=== PATIENT | male | born 1950 | race Caucasian/White ===

== ENCOUNTER 2017-11-28 17:40 | Emergency (ER) | payer MEDICARE ==
[2017-11-28] MEDS ORDERED: Aspirin Low Dose CHEW TAB* 81 MG PO ONE (18:15)
[2017-11-28] MEDS ORDERED: Aspirin Low Dose CHEW TAB* 81 MG ONE (18:17)
[2017-11-28 18:39] LABS: ABS Basophils 0 10^3/ul (0-0.2); ABS Eosinophils 0.1 10^3/ul (0-0.6); ABS Lymphocytes 1.7 10^3/ul (1.0-4.8); ABS Monocytes 0.6 10^3/ul (0-0.8); ABS Neutrophils 2.6 10^3/ul (1.5-7.7); ABS Nucleated RBC 0 10^3/ul; Eosinophil % 1.1 % (0-6); Hematocrit 43 % (42-52); Hemoglobin 14.6 g/dl (14.0-18.0); Lymphocyte % 34.1 % (25-47); Mean Corpuscular HGB Conc 34 g/dl (31-36); Mean Corpuscular Hemoglobin 29 pg (27-31); Mean Corpuscular Volume 85 fL (80-94); Mean Platelet Volume 8 um3 (7.4-10.4); Nucleated Red Blood Cells % 0.1; Platelet Count 171 10^3/ul (150-450); Red Blood Count 5.09 10^6/ul (4.0-5.4); Red Cell Distribution Width 17 % (10.5-15); White Blood Count 4.9 10^3/ul (3.5-10.8)
[2017-11-28 19:01] LABS: EGFR Non-African American 70.5 (>60)
--- NOTE | 2017-11-28 19:09 | RAD ---
Indication: LEFT upper side chest pain starting yesterday with worsening today. Coronary artery disease with prior stenting. Prior tobacco use. Comparison: March 10, 2015 Technique: Upright AP 1850 hours Report: Clear lungs and pleural spaces. Negative for pneumothorax. The heart, pulmonary vasculature, and mediastinal contours are unremarkable. Unremarkable osseous structures and soft tissue contours. IMPRESSION: No evidence for acute intrathoracic disease.
[2017-11-28] MEDS ORDERED: Omeprazole CAP* 20 MG PO ONE (22:32)
--- NOTE | 2017-11-28 23:09 | ED ---
Alicja Hernandez Jason, scribed for Vi Rodriguez MD on 11/28/17 at 2211 . HPI Chest Pain - HPI Summary HPI Summary: This patient is a 66 year old M presenting to [facility] after driving himself to the ED with a chief complaint of stabbing chest pain since 1500. Pt also had some chest pain yesterday while chopping wood that resolved spontaneously. The patient states he had 2 stents placed approximately 2 years ago (2015), and he is since off his Brilinta since Sep 2016. He did not have an AR. Pt also has hyperlipidemia and takes atorvastatin. He has a strong family history of heart problems with his brother having an AR and CABG, and his father of valvular disease. Pt states he called Dr. Bhandari this afternoon to arrange a follow up appointment, but when he told them he was experiencing chest pain, they advised that he come directly to the ED. Currently, the pain has resolved to a 0/10 Symptoms aggravated by nothing. Symptoms alleviated by nothing. Patient denies SOB. Pt states this is the first chest pain that he has had since the stents were placed. Pt's meds are: 81 mg of aspirin every morning, Atorvastatin 40 mg, metoprolol, and potassium. He does not have a gallbladder and quit smoking 18 years ago. - History of Current Complaint Chief Complaint: EDChestPainROMI Time Seen by Provider: 11/28/17 18:20 Hx Obtained From: Patient Onset/Duration: Started Hours Ago Time of Onset: 15:00 Timing: Constant Initial Severity: Moderate Current Severity: None Pain Intensity: 0 Pain Scale Used: 0-10 Numeric Chest Pain Location: Left Anterior Chest Pain Radiates: No Character: Sharp/Stabbing Aggravating Factor(s): Nothing Alleviating Factor(s): Nothing Associated Signs and Symptoms: Positive: Chest Pain. Negative: Weakness, Dizziness, Shortness of Breath, Fever, Cough, Abdominal Pain - Additional Pertinent History Primary Care Physician: [id number] - Allergy/Home Medications Allergies/Adverse Reactions: Allergies Allergy/AdvReac Type Severity Reaction Status Date / Time No Known Allergies Allergy Verified 11/28/17 18:11 Home Medications: Home Medications Aspirin Low Dose CHEW TAB* [Aspirin Low Dose TAB*] 81 mg PO DAILY 11/28/17 [ History Confirmed 11/28/17] Atorvastatin* [Lipitor*] 40 mg PO DAILY 11/28/17 [History Confirmed 11/28/17] Garlic 1,000 mg PO DAILY 11/28/17 [History Confirmed 11/28/17] Metoprolol Succinate XL TAB* [Toprol XL TAB*] 25 mg PO DAILY 11/28/17 [History Confirmed 11/28/17] Multivitamins/Minerals TAB* [Theragran/minerals TAB*] 1 tab PO DAILY 11/28/17 [ History Confirmed 11/28/17] Potassium Chlor TAB (NF) [Kaon-Cl-10 TAB (NF)] 10 meq PO DAILY 11/28/17 [ History Confirmed 11/28/17] Saw [place] Fruit [Saw [place]] 450 mg PO DAILY 11/28/17 [History Confirmed ] Vitamin E CAP* 200 unit PO DAILY 11/28/17 [History Confirmed 11/28/17] PMH/Surg Hx/FS Hx/Imm Hx Previously Healthy: No Endocrine/Hematology History: Denies: Hx Diabetes Cardiovascular History: Reports: Hx Coronary Artery Disease - 2 stents placed , Hx Hypercholesterolemia Denies: Hx Hypertension, Hx Pacemaker/ICD History: Denies: Hx Renal Disease Sensory History: Denies: Hx Hearing Aid Psychiatric History: Denies: Hx Panic Disorder - Surgical History Surgery Procedure, Year, and Place: deviated septum repair, 3 hernia repair 1 inguinal, 2 umbilical, [facility]. 2 HEART STENTS-[facility] FOR 1.5 OR 3T- 2200G/CM PER [facility] Hx Anesthesia Reactions: No Infectious Disease History: Denies: Traveled Outside the [place] in Last 30 Days - Family History Known Family History: Positive: Cardiac Disease - father , Other - brother with triple bypass, grandfather from [place] - Social History Lives: With Family Alcohol Use: Occasionally Alcohol Amount: 2 drinks every couple weeks Substance Use Type: Reports: None Smoking Status (MU): Former Smoker Have You Smoked in the Last Year: No Review of Systems Constitutional: Negative Positive: Chest Pain Negative: Shortness Of Breath Gastrointestinal: Negative Skin: Negative Neurological: Negative Psychological: Normal All Other Systems Reviewed And Are Negative: Yes Physical Exam - Summary Physical Exam Summary: Appearance: well appearing, minimal to no pain distress, Well-nourished Skin: Warm, color reflects adequate perfusion Head: Normal Head/Face inspection Eyes: Conjunctiva clear ENT: Normal inspection Neck: Supple, no nodes, no JVD. Respiratory: Lungs clear, Normal breath sounds, no respiratory distress Cardio: RRR, No murmur, pulses normal, brisk capillary refill Abdomen: soft, nontender, no masses Bowel sounds: present Musculoskeletal: Strength Intact/ ROM intact. No calf tenderness. No edema. Psychological: Normal Triage Information Reviewed: Yes Vital Signs On Initial Exam: Initial Vitals BP 127/76 11/28/17 18:03 Vital Signs Reviewed: Yes Diagnostics - Vital Signs Vital Signs Pulse Resp BP Pulse Ox 11/28/17 19:00 75 134/76 97 11/28/17 18:35 97 11/28/17 18:30 69 14 140/80 97 11/28/17 18:04 12 11/28/17 18:03 127/76 - Laboratory Lab Results: Lab Results 11/28/17 11/28/17 11/28/17 Range/Units 18:30 18:30 18:30 WBC 4.9 (3.5-10.8) 10^3/ul RBC 5.09 (4.0-5.4) 10^6/ul Hgb 14.6 (14.0-18.0) g/dl Hct 43 (42-52) % MCV 85 (80-94) fL MCH 29 (27-31) pg MCHC 34 (31-36) g/dl RDW 17 H (10.5-15) % Plt Count 171 (150-450) 10^3/ul MPV 8 (7.4-10.4) um3 Neut % (Auto) 52.6 (38-83) % Lymph % (Auto) 34.1 (25-47) % Haines % (Auto) 11.9 H (0-7) % Eos % (Auto) 1.1 (0-6) % Baso % (Auto) 0.3 (0-2) % Absolute Neuts (auto) 2.6 (1.5-7.7) 10^3/ul Absolute Lymphs (auto) 1.7 (1.0-4.8) 10^3/ul Absolute Monos (auto) 0.6 (0-0.8) 10^3/ul Absolute Eos (auto) 0.1 (0-0.6) 10^3/ul Absolute Basos (auto) 0 (0-0.2) 10^3/ul Absolute Nucleated RBC 0 10^3/ul Nucleated RBC % 0.1 Sodium 138 (133-145) mmol/L Potassium 4.0 (3.5-5.0) mmol/L Chloride 104 (101-111) mmol/L Carbon Dioxide 29 (22-32) mmol/L Anion Gap 5 (2-11) mmol/L BUN 18 (6-24) mg/dL Creatinine 1.05 (0.67-1.17) mg/dL Est GFR ( Amer) 90.6 (>60) Est GFR (Non-Af Amer) 70.5 (>60) BUN/Creatinine Ratio 17.1 (8-20) Glucose 99 (70-100) mg/dL Lactic Acid 0.8 (0.5-2.0) mmol/L Calcium 9.5 (8.6-10.3) mg/dL Magnesium 2.2 (1.9-2.7) mg/dL Total Bilirubin 0.30 (0.2-1.0) mg/dL AST 23 (13-39) U/L ALT 28 (7-52) U/L Alkaline Phosphatase 72 (34-104) U/L Troponin I 0.00 (<0.04) ng/mL Total Protein 6.9 (6.4-8.9) g/dL Albumin 4.0 (3.2-5.2) g/dL Globulin 2.9 (2-4) g/dL Albumin/Globulin Ratio 1.4 (1-3) TSH 1.01 (0.34-5.60) mcIU/mL 11/28/17 Range/Units 21:15 WBC (3.5-10.8) 10^3/ul RBC (4.0-5.4) 10^6/ul Hgb (14.0-18.0) g/dl Hct (42-52) % MCV (80-94) fL MCH (27-31) pg MCHC (31-36) g/dl RDW (10.5-15) % Plt Count (150-450) 10^3/ul MPV (7.4-10.4) um3 Neut % (Auto) (38-83) % Lymph % (Auto) (25-47) % Haines % (Auto) (0-7) % Eos % (Auto) (0-6) % Baso % (Auto) (0-2) % Absolute Neuts (auto) (1.5-7.7) 10^3/ul Absolute Lymphs (auto) (1.0-4.8) 10^3/ul Absolute Monos (auto) (0-0.8) 10^3/ul Absolute Eos (auto) (0-0.6) 10^3/ul Absolute Basos (auto) (0-0.2) 10^3/ul Absolute Nucleated RBC 10^3/ul Nucleated RBC % Sodium (133-145) mmol/L Potassium (3.5-5.0) mmol/L Chloride (101-111) mmol/L Carbon Dioxide (22-32) mmol/L Anion Gap (2-11) mmol/L BUN (6-24) mg/dL Creatinine (0.67-1.17) mg/dL Est GFR ( Amer) (>60) Est GFR (Non-Af Amer) (>60) BUN/Creatinine Ratio (8-20) Glucose (70-100) mg/dL Lactic Acid (0.5-2.0) mmol/L Calcium (8.6-10.3) mg/dL Magnesium (1.9-2.7) mg/dL Total Bilirubin (0.2-1.0) mg/dL AST (13-39) U/L ALT (7-52) U/L Alkaline Phosphatase (34-104) U/L Troponin I 0.00 (<0.04) ng/mL Total Protein (6.4-8.9) g/dL Albumin (3.2-5.2) g/dL Globulin (2-4) g/dL Albumin/Globulin Ratio (1-3) TSH (0.34-5.60) mcIU/mL Result Diagrams: 11/28/17 18:30 11/28/17 18:30 Lab Statement: Any lab studies that have been ordered have been reviewed, and results considered in the medical decision making process. - Radiology cxr Radiology Interpretation Completed By: Radiologist - CXR reveals, per radiologist, No evidence for acute intrathoracic disease. ED physician has reviewed this radiology report. - EKG 1756 Cardiac Rate: NL EKG Rhythm: Sinus Rhythm - [address] Segment: Non-Specific Ectopy: None EKG Interpretation: normal AVIVCT, moral QTc, normal axis, no STEMI. EKG Comparison: Other - compared with 09/28/15, no significant change. Re-Evaluation - Re-Evaluation First Eval Re-Evaluation Time: 10:22 Change: Unchanged Comment: First two troponins are zero. I discussed need for 6 hour Troponin to fully "rule-out" patient for acute cardiac event. Pt voices understanding. States he feels a tightness in his epigastric, lower ant chest, that he feels is GERD. Will give omeprazole po that pt has taken in the past. Second Eval Re-Evaluation Time: 11:00 Change: Unchanged Comment: No chest pain at present. Awaiting 6 hr troponin. Chest Pain Course/Dx - Course Course Of Treatment: Pt given ASA 324mg po. Pt had 2 troponins negative. Pt also given omeprazole 20mg po x 1. Care signed out to Dr. Ambriz, 23:00 11/28/17 , pending 6 hr troponin in this pt with known ACS s/p 2 stents 2015, now off Brilinta, hx hyperlipidemia, former smoker, +fam hx brother with CABG s/p AR, after his first chest pain since the stents. If pt able to be DC'd will need urgent outpatient stress test. Pt advised to call Dr. Bhandari on 12/01/17 , and to call Dr. Balderrama on 12/01/17. Pt has appt with Dr. Balderrama scheduled for 12/02/17. - Chest Pain Differential Diagnosis/HQI/PQRI: Acute AR, ACS, Angina, Chest Wall, GI Disease - Diagnoses Provider Diagnoses: Chest pain Discharge - Discharge Plan Condition: Stable Disposition: OTHER Discharge Disposition Comment: Patient is signed out to Dr. Ambriz, pending disposition, awaiting Troponin Referrals: Danny Balderrama MD [Primary Care Provider] - The documentation as recorded by the Alicja naranjo Jason accurately reflects the service I personally performed and the decisions made by me, Vi Rodriguez MD.
[2017-11-29 01:07] VITALS: BP 127/74
--- NOTE | 2017-11-29 15:11 | ED ---
I, Bibiana Bro, scribed for Rosendo Ambriz MD on 11/28/17 at 2254 . Progress - Progress Note Progress Note: The pt was signed out from Dr. Rodriguez, awaiting 6hr troponin results. - Results/Orders Results/Orders: CXR reveals no evidence for acute intrathoracic disease. ED physician has reviewed this radiology report. Re-Evaluation - Re-Evaluation First Eval Re-Evaluation Time: 10:22 Change: Unchanged Comment: First two troponins are zero. I discussed need for 6 hour Troponin to fully "rule-out" patient for acute cardiac event. Pt voices understanding. States he feels a tightness in his epigastric, lower ant chest, that he feels is GERD. Will give omeprazole po that pt has taken in the past. Second Eval Re-Evaluation Time: 11:00 Change: Unchanged Comment: No chest pain at present. Awaiting 6 hr troponin. Third Eval Re-Evaluation Time: 00:55 Change: Unchanged - pt resting comfortably in bed. pt hemodynamically stable. Pt chest pain free. Pt repeat 6hr troponin negative. Plan for d/c home with outpt Cardiology f/u. Course/Dx - Diagnoses Provider Diagnoses: Chest pain The documentation as recorded by the glendyibeDieudonne Sixian accurately reflects the service I personally performed and the decisions made by me, Rosendo Ambriz MD.
== END 2017-11-29 01:08 | disposition home or self-care (01) ==
LOC: ED 17:40
DX: R07.9 Chest pain, unspecified (principal); E78.5 Hyperlipidemia, unspecified; Z79.82 Long term (current) use of aspirin; I25.10 Atherosclerotic heart disease of native coronary artery without angina pectoris; E78.00 Pure hypercholesterolemia, unspecified; Z87.891 Personal history of nicotine dependence
CPT/HCPCS: 36415; 71045; 80053; 83605; 83735; 84443; 84484; 85025; 93005; 99284; A9270-GY

== ENCOUNTER 2020-05-26 06:34 | Inpatient (IN) ==
[~2020-05-26 06:34] MED LIST: Buffered Lidocaine 1% SYRIN 1 ml INTRADERM ONE; Bupivacaine 0.5% SDV PF 30ML VIAL ONE; EPHEDrine (Pressors) 50 MG/ML VIAL ONE; Famotidine IV 10 MG/ML 2 ml VIAL (20 mg) IV ONE; Lactated Ringers 1000 ml BAG 1,000 ML IV SCH; Midazolam 5 mg/5 ml VIAL 1 mg/ml 5 ml VIAL (5 mg) ONE; Phenylephrine IV 10 MG/ML 1 ml VIAL ONE; Propofol 10 MG/ML 20 ML BTL ONE; Rocuronium 50 mg VIAL 10 mg/ml 5 ml VIAL (50 mg) ONE; Sodium Citrate/Citric Acid LIQ 15 ML UDC PO ONE; Sterile Water for Inj 10 ML ONE
[2020-05-26] MEDS ORDERED: ceFAZolin 2 GM PREMIX 2 GM/50 ML BAG ONE (06:57)
[2020-05-26] MEDS ORDERED: Famotidine IV 10 MG/ML 2 ml VIAL (20 mg) ONE (06:57)
[2020-05-26] MEDS ORDERED: Sodium Citrate/Citric Acid LIQ 15 ML UDC ONE (06:57)
[2020-05-26] MEDS ORDERED: Buffered Lidocaine 1% SYRIN 1 ml INTRADERM ONE (06:57)
[2020-05-26] MEDS ORDERED: ROPIVACAINE 5 MG/ML 30 ML BTL (0.5%) ONE ×2 (07:16→08:10)
[2020-05-26] MEDS ORDERED: Lidocaine 1% MPF 5 ML VIAL ONE (08:10)
[2020-05-26] MEDS ORDERED: Ondansetron 4 mg VIAL 2 MG/ML 2 ml VIAL IV PRN ×2 (09:40→12:01)
[2020-05-26] MEDS ORDERED: Naloxone 0.4 mg VIAL 0.4 mg/ml 1 ml VIAL IV PRN (09:40)
[2020-05-26] MEDS ORDERED: fentaNYL 100 mcg/2 ml 50 MCG/ML VIAL IV PRN (09:40)
[2020-05-26] MEDS ORDERED: HYDROmorphone 1 MG/1 ML SYRINGE IV PRN (09:40)
[2020-05-26] MEDS ORDERED: Propofol 10 MG/ML 20 ML BTL ONE ×2 (09:47→11:08)
[2020-05-26] MEDS ORDERED: Magnesium Hydroxide LIQ 30 ML UDC PO PRN (12:01)
[2020-05-26] MEDS ORDERED: Ondansetron ODT 4 mg TAB 4 MG TAB PO PRN (12:01)
[2020-05-26] MEDS ORDERED: Lactulose 30 ml UDC PO PRN (12:01)
[2020-05-26] MEDS ORDERED: oxyCODONE/Acetamin 5/325 mg TAB PO PRN (12:01)
[2020-05-26] MEDS ORDERED: Morphine 2 MG/ML SYRINGE IV PRN (12:01)
[2020-05-26] MEDS ORDERED: diPHENhydraMINE IV 50 MG/ML 1 ml VIAL (BENADRYL) IV PRN (12:01)
[2020-05-26] MEDS ORDERED: diPHENhydraMINE 25 mg TAB PO PRN (12:01)
[2020-05-26] MEDS ORDERED: Polyethylene Glycol 3350 17 GM PACKET PO PRN (12:06)
[2020-05-26] MEDS ORDERED: Lactated Ringers 1000 ml BAG 1,000 ML IV SCH (13:00)
[2020-05-26] MEDS: oxyCODONE/Acetamin 5/325 mg TAB PO PRN ×2 (16:33→23:09)
[2020-05-26] MEDS: ceFAZolin 1 GM ADVAN 1 GM in NS 0.9% 50 ML 50 ML IVPB SCH (17:16)
[2020-05-26] MEDS ORDERED: Dextran 70/Hypromellose Tears Eye Drops 15 ml BTL (for Artificials Tears) BOTH EYES PRN (18:17)
[2020-05-26] MEDS ORDERED: diPHENhydraMINE IV 50 MG/ML 1 ml VIAL (BENADRYL) ONE (19:59)
[2020-05-26] MEDS ORDERED: Dextrose 50% Syringe 50 ml 25 GM/50 ML SYRINGE ONE (20:01)
[2020-05-26] MEDS ORDERED: methylPREDNISolone SOD 40 mg/ml 1 ml VIAL ONE (20:08)
[2020-05-26] MEDS ORDERED: methylPREDNISolone SOD 40 mg/ml 1 ml VIAL IV ONE (20:10)
[2020-05-26] MEDS ORDERED: Dextrose 50% VIAL 50 ml IV PRN (20:15)
[2020-05-26 20:24] LABS: ABS Eosinophils 0.1 10^3/ul (0-0.6); ABS Lymphocytes 1.3 10^3/ul (1.0-4.8); ABS Monocytes 0.7 10^3/ul (0-0.8); ABS Neutrophils 4.7 10^3/ul (1.5-7.7); Eosinophil % 1.2 %; Hematocrit 42 % (42-52); Hemoglobin 13.9 g/dL (14.0-18.0); Lymphocyte % 19.3 %; Mean Corpuscular HGB Conc 33 g/dL (31-36); Mean Corpuscular Hemoglobin 31 pg (27-31); Mean Corpuscular Volume 94 fL (80-94); Mean Platelet Volume 8.2 fL (7.4-10.4); Platelet Count 162 10^3/uL (150-450); Red Blood Count 4.46 10^6 /uL (4.18-5.48); Red Cell Distribution Width 14 % (10-15); White Blood Count 6.8 10^3/uL (3.5-10.8)
[2020-05-26 20:32] LABS: INR 1.07 (0.82-1.09)
[2020-05-26 20:40] LABS: Albumin 3.5 g/dL (3.2-5.2); Albumin/Globulin Ratio 1.8 (1-3); BUN/Creatinine Ratio 16.7 (8-20); C Reactive Protein 2.35 mg/L (<8.01); Calcium 8.6 mg/dL (8.6-10.3); EGFR African American 100.9 (>60); EGFR Non-African American 83.4 (>60); Total Bilirubin 0.4 mg/dL (0.2-1.0); Total Protein 5.5 g/dL (6.4-8.9)
[2020-05-26 20:42] LABS: Potassium 4.1 mmol/L (3.5-5.0)
[2020-05-26] MEDS: Magnesium Hydroxide LIQ 30 ML UDC PO SCH (23:10)
[2020-05-27] MEDS: ceFAZolin 1 GM ADVAN 1 GM in NS 0.9% 50 ML 50 ML IVPB SCH ×2 (01:36→09:22)
[2020-05-27 05:39] LABS: ABS Lymphocytes 0.3 10^3/ul (1.0-4.8); ABS Monocytes 0.6 10^3/ul (0-0.8); ABS Neutrophils 5.1 10^3/ul (1.5-7.7); Hematocrit 39 % (42-52); Hemoglobin 13.2 g/dL (14.0-18.0); Lymphocyte % 5.7 %; Mean Corpuscular HGB Conc 34 g/dL (31-36); Mean Corpuscular Hemoglobin 31 pg (27-31); Mean Corpuscular Volume 93 fL (80-94); Mean Platelet Volume 8.2 fL (7.4-10.4); Nucleated Red Blood Cells % 0.1; Platelet Count 145 10^3/uL (150-450); Red Blood Count 4.22 10^6 /uL (4.18-5.48); Red Cell Distribution Width 14 % (10-15); White Blood Count 6.1 10^3/uL (3.5-10.8)
[2020-05-27 06:00] LABS: Calcium 8.8 mg/dL (8.6-10.3); EGFR Non-African American 79.3 (>60); Potassium 4.4 mmol/L (3.5-5.0)
[2020-05-27] MEDS: oxyCODONE/Acetamin 5/325 mg TAB PO PRN ×2 (07:43→12:07)
[2020-05-27] MEDS ORDERED: Potassium Chlor 10 meq TAB PO SCH (09:00)
[2020-05-27] MEDS ORDERED: Vitamin THERAPEUTIC TAB PO SCH (09:00)
[2020-05-27 09:21] LABS: Urine Appearance Clear; Urine Bilirubin Negative (Negative); Urine Blood 1+ (Negative); Urine Color Yellow; Urine Glucose 2+(150 mg/dL) (Negative); Urine Ketones Negative (Negative); Urine Nitrite Negative (Negative); Urine Protein Negative (Negative); Urine Specific Gravity 1.019 (1.010-1.030); Urine Urobilinogen Negative (Negative)
[2020-05-27 09:46] LABS: Urine Bacteria Absent (Absent); Urine Red Blood Cell Trace(0-2/hpf) (Absent); Urine White Blood Cell Absent (Absent)
[2020-05-27] MEDS: Magnesium Hydroxide LIQ 30 ML UDC PO SCH (10:02)
[2020-05-27 12:59] VITALS: BP 128/76
== END 2020-05-27 13:50 | disposition home health service (06) | DRG 470 ==
LOC: AA 06:34 → SSU 14:25
PROVIDERS: ADMIT Orthopaedic Surgery Adult Reconstructive Orthopaedic Surgery; ATTEND Orthopaedic Surgery Adult Reconstructive Orthopaedic Surgery

== ENCOUNTER 2020-06-15 12:10 | Inpatient (IN) ==
[2020-06-15 13:22] LABS: ABS Monocytes 0.7 10^3/ul (0-0.8); ABS Neutrophils 3.7 10^3/ul (1.5-7.7); Eosinophil % 0.7 %; Hematocrit 39 % (42-52); Hemoglobin 13.2 g/dL (14.0-18.0); Mean Corpuscular HGB Conc 34 g/dL (31-36); Mean Corpuscular Hemoglobin 31 pg (27-31); Mean Corpuscular Volume 93 fL (80-94); Mean Platelet Volume 7.3 fL (7.4-10.4); Platelet Count 325 10^3/uL (150-450); Red Blood Count 4.22 10^6 /uL (4.18-5.48); Red Cell Distribution Width 14 % (10-15); White Blood Count 5.5 10^3/uL (3.5-10.8)
[2020-06-15 13:32] LABS: INR 1.16 (0.82-1.09)
[2020-06-15] MEDS ORDERED: Perflutren Lipid Microsphere 3 ML VIAL ONE (13:33)
[2020-06-15 13:40] LABS: Albumin 3.9 g/dL (3.2-5.2); Albumin/Globulin Ratio 1.2 (1-3); Calcium 9.7 mg/dL (8.6-10.3); EGFR African American 107.8 (>60); EGFR Non-African American 89.1 (>60); Globulin 3.3 g/dL (2-4); Potassium 4.5 mmol/L (3.5-5.0); Total Bilirubin 0.7 mg/dL (0.2-1.0); Total Protein 7.2 g/dL (6.4-8.9)
[2020-06-15] MEDS ORDERED: Ondansetron 4 mg VIAL 2 MG/ML 2 ml VIAL IV PRN (15:56)
[2020-06-15] MEDS ORDERED: Iohexol 350 (CONTRAST) 500 ML MDV IV ONE (17:39)
[2020-06-16 05:54] LABS: ABS Eosinophils 0.1 10^3/ul (0-0.6); ABS Lymphocytes 1.6 10^3/ul (1.0-4.8); ABS Monocytes 0.6 10^3/ul (0-0.8); ABS Neutrophils 2.8 10^3/ul (1.5-7.7); Eosinophil % 2.3 %; Hematocrit 39 % (42-52); Lymphocyte % 30.9 %; Mean Corpuscular HGB Conc 34 g/dL (31-36); Mean Corpuscular Hemoglobin 31 pg (27-31); Mean Corpuscular Volume 92 fL (80-94); Mean Platelet Volume 7.5 fL (7.4-10.4); Nucleated Red Blood Cells % 0.1; Platelet Count 271 10^3/uL (150-450); Red Blood Count 4.23 10^6 /uL (4.18-5.48); Red Cell Distribution Width 14 % (10-15); White Blood Count 5.2 10^3/uL (3.5-10.8)
[2020-06-16 06:17] LABS: BUN/Creatinine Ratio 21.3 (8-20); Calcium 8.8 mg/dL (8.6-10.3); EGFR African American 115.6 (>60); EGFR Non-African American 95.6 (>60)
[2020-06-16] MEDS ORDERED: Aminophylline 25 MG/ML VIAL ONE (09:21)
[2020-06-16] MEDS ORDERED: Regadenoson 0.4 MG/5 ML SYRINGE ONE (09:21)
[2020-06-16 10:55] LABS: Hematocrit 41 % (42-52)
[2020-06-16] MEDS ORDERED: Heparin 1,000 UNIT/ML 10 ml (10,000 UNITS) CATHLAB/DIALYSIS ONE ×2 (13:14→14:42)
[2020-06-16] MEDS ORDERED: VERAPAMIL 2.5 MG/ML 2 ML VIAL ** 5 mg/2 ml ONE (13:14)
[2020-06-16] MEDS ORDERED: fentaNYL 100 mcg/2 ml 50 MCG/ML VIAL ONE (13:14)
[2020-06-16] MEDS ORDERED: Midazolam 5 mg/5 ml VIAL 1 mg/ml 5 ml VIAL (5 mg) ONE (13:14)
[2020-06-16] MEDS ORDERED: nitroGLYCERIN DRIP 25,000 MCG/250 ML BTL ONE (13:15)
[2020-06-16] MEDS ORDERED: Lidocaine 1% VIAL 10 MG/ML VIAL ONE (13:15)
[2020-06-16] MEDS ORDERED: Iohexol 350 (CONTRAST) 200 ML MDV IV ONE ×2 (13:15→15:06)
[2020-06-16] MEDS ORDERED: Heparin 2 UNITS/ML 1000 mls 3,000 ML IV ONE (13:15)
[2020-06-16] MEDS: Warfarin DAILY REMINDER **NOTE FOLLOW UP SCH (17:58)
[2020-06-16] MEDS ORDERED: NS 0.9% 1000 ml BAG 1,000 ML IV SCH (18:30)
[2020-06-17 05:09] LABS: ABS Eosinophils 0.1 10^3/ul (0-0.6); ABS Lymphocytes 0.9 10^3/ul (1.0-4.8); ABS Monocytes 0.5 10^3/ul (0-0.8); ABS Neutrophils 2.9 10^3/ul (1.5-7.7); Eosinophil % 2.3 %; Hematocrit 38 % (42-52); Hemoglobin 12.7 g/dL (14.0-18.0); Mean Corpuscular HGB Conc 33 g/dL (31-36); Mean Corpuscular Hemoglobin 31 pg (27-31); Mean Corpuscular Volume 92 fL (80-94); Mean Platelet Volume 7.3 fL (7.4-10.4); Nucleated Red Blood Cells % 0.2; Platelet Count 263 10^3/uL (150-450); Red Cell Distribution Width 14 % (10-15); White Blood Count 4.5 10^3/uL (3.5-10.8)
[2020-06-17 05:25] LABS: Albumin 3.2 g/dL (3.2-5.2); Albumin/Globulin Ratio 1.2 (1-3); BUN/Creatinine Ratio 15.6 (8-20); Calcium 8.5 mg/dL (8.6-10.3); EGFR African American 120.9 (>60); EGFR Non-African American 99.9 (>60); Globulin 2.7 g/dL (2-4); HDL Cholesterol 31.4 mg/dL; Total Bilirubin 0.7 mg/dL (0.2-1.0); Total Protein 5.9 g/dL (6.4-8.9)
[2020-06-17 05:51] LABS: INR 1.16 (0.82-1.09)
[2020-06-17] MEDS: Warfarin DAILY REMINDER **NOTE FOLLOW UP SCH (17:16)
[2020-06-17] MEDS ORDERED: Aspirin EC 81 mg TAB.EC (enteric coated) PO ONE (17:54)
[2020-06-18] MEDS ORDERED: Aspirin EC 81 mg TAB.EC (enteric coated) PO SCH (09:00)
[2020-06-18 09:21] VITALS: BP 131/66
== END 2020-06-18 10:00 | disposition home or self-care (01) | DRG 247 ==
LOC: ED 12:10 → MEDTELE 15:56 → ICU 06-16 17:03 → MEDTELE 06-17 12:26
PROVIDERS: ADMIT Internal Medicine; ATTEND Internal Medicine